=== PATIENT | male | born 1960 | race African-American/Black ===

== ENCOUNTER 2021-07-22 05:48 | Inpatient (IN) | payer OTHER ==
[~2021-07-22 05:48] MED LIST: Labetalol HCl 100 MG/20 ML VIAL ONE
[2021-07-22 06:50] LABS: Troponin I 0.599 ng/mL (< 0.028)
[2021-07-22] MEDS ORDERED: Fentanyl 100 MCG/2 ML VIAL ONE (06:53)
[2021-07-22] MEDS ORDERED: Dextrose 5% in Water 1,000 ML IV PRN (06:55)
[2021-07-22] MEDS ORDERED: Dextrose 50% Abboject 50 ML SYRINGE SLOW IVP PRN (06:55)
[2021-07-22] MEDS ORDERED: Nitroglycerin 2% Ointment 1 INCH/1 GM Packet TOP SCH (07:00)
[2021-07-22 07:08] LABS: SARS-CoV-2 NAA Rapid Test Not Detected (NotDetected)
[2021-07-22 07:14] LABS: Anion Gap 18 mmol/L (10-20); BUN (Urea Nitrogen) 33 mg/dL (8.4-25.7); Calc. Creatinine Clearance 0 mL/min (70-130); Calcium 8.9 mg/dL (7.8-10.44); Carbon Dioxide 23 mmol/L (23-31); Chloride 101 mmol/L (98-107); Glucose 209 mg/dL (80-115); Potassium 3.1 mmol/L (3.5-5.1); Sodium 139 mmol/L (136-145)
[2021-07-22 07:18] LABS: ALV-art Gradient 359.775 mmHg (0-20); Actual Bicarbonate (HCO3a) 28.1 mEq/L (22-28); Base Excess (BEa) 1.5 mEq/L (-2.0 to +3.0); CO2 Tension 52.9 mmHg (35.0-45.0); Calcium, Ionized (arterial) 1.15 mmol/L (1.12-1.30); Carboxyhemoglobin (COHb) 3.8 gm% (0.0-3.0); Hemoglobin (Hb) 12.6 g/dL (14.0-18.0); O2 Tension (PaO2), arterial 73.2 mmHg (> 80.0); Potassium - ABG Lab 3.5 mmol/L (3.70-5.30); Puncture Site LRA; pH, Arterial 7.34 (7.35-7.45)
[2021-07-22] MEDS ORDERED: fentaNYL Citrate/PF 50 MCG/ML (20ML VIAL) ONE ×3 (07:24→09:57)
[2021-07-22 07:26] LABS: Magnesium 2.2 mg/dL (1.6-2.6)
[2021-07-22 07:31] LABS: PTT 29.8 sec (22.0-33.0); Prothrombin Time 10.5 sec (9.5-12.1)
[2021-07-22] MEDS ORDERED: Propofol 1,000 MG/100 ML VIAL IV ONE (07:51)
[2021-07-22] MEDS ORDERED: Fentanyl BOLUS 250 ML IVPB PRN (08:15)
[2021-07-22] MEDS ORDERED: Morphine 2 MG/ML VIAL SLOW IVP PRN (08:15)
[2021-07-22] MEDS ORDERED: DISCONTINUE PREVIOUS NARCOTIC PAIN MEDICATIONS AND BENZODIAZEPINES FS SCH (08:15)
[2021-07-22] MEDS ORDERED: Propofol BOLUS 1,000 MG/100 ML VIAL IV PRN (08:15)
[2021-07-22] MEDS ORDERED: Lorazepam 2 MG/ML VIAL SLOW IVP PRN (08:15)
[2021-07-22] MEDS ORDERED: fentaNYL Citrate-0.9 % NaCl/PF 100 ML IVPB SCH (08:15)
[2021-07-22 08:56] LABS: Amphetamine Not Detected (NotDetected); Barbiturates Screen Not Detected (NotDetected); Benzodiazepine Screen Not Detected (NotDetected); Cocaine Metabolite Screen Detected (NotDetected); Methadone Not Detected (NotDetected); Methamphetamine Not Detected (NotDetected); Opiate Screen Not Detected (NotDetected); Oxycodone Screen Not Detected (NotDetected); Phencyclidine (PCP) Not Detected (NotDetected); THC/Cannabinoid Screen Detected (NotDetected); Tricyclic Screen Not Detected (NotDetected)
[2021-07-22] MEDS ORDERED: Furosemide 40 MG/4 ML VIAL SLOW IVP SCH ×3 (09:00→16:00)
[2021-07-22] MEDS ORDERED: Aspirin 300 MG Suppository PR SCH (09:00)
[2021-07-22 09:14] LABS: Troponin I 0.646 ng/mL (< 0.028)
[2021-07-22] MEDS ORDERED: Prevnar 13-Val Conj/PF 0.5 ML SYRINGE IM ONE (09:15)
[2021-07-22] MEDS: Pantoprazole 40 MG VIAL IVP SCH (09:31)
[2021-07-22] MEDS: HumaLOG 300 UNITS/3 ML VIAL SC PRN (09:31)
[2021-07-22] MEDS: Enoxaparin Sodium 60 MG/0.6 ML SYRINGE SC SCH ×2 (09:31→21:07)
[2021-07-22 10:35] LABS: Actual Bicarbonate (HCO3v) 28 mEq/L (22-28); Base Excess 2.1 mEq/L (-2.0 to +3.0); Calcium, Ionized (venous) 1.12 mmol/L (1.16-1.32); Chloride (VBG) 100 mmol/L (98-106); Hemoglobin (Hb) 12.6 g/dL (13.1-17.2); Potassium (VBG) 4.14 mmol/L (3.70-5.30); Puncture Site Other Site; RapidComm Collect By CBL; Sodium 136.9 mmol/L (133-146); pH (venous) 7.36 (7.32-7.43)
[2021-07-22 10:42] LABS: Lactic Acid 1.9 mmol/L (0.5-2.2)
[2021-07-22] MEDS: Lactated Ringer's 1,000 ML IV SCH (10:43)
[2021-07-22] MEDS ORDERED: Piperacillin/Tazobactam 3.375 GM in Sodium Chloride 0.9% 100 ML IVPB SCH ×2 (11:00→15:00)
[2021-07-22] MEDS ORDERED: Potassium Chloride 20 MEQ TAB PO SCH ×2 (11:00→15:00)
[2021-07-22] MEDS: Propofol 1,000 MG/100 ML VIAL IV PRN (14:46)
[2021-07-22] MEDS: Furosemide 40 MG/4 ML VIAL SLOW IVP SCH (16:53)
[2021-07-22] MEDS: Atorvastatin Calcium 40 MG TAB PO SCH (21:07)
[2021-07-22] MEDS: Piperacillin/Tazobactam 3.375 GM in Sodium Chloride 0.9% 100 ML IVPB SCH (21:08)
[2021-07-23] MEDS: Lactated Ringer's 1,000 ML IV SCH (00:04)
[2021-07-23] MEDS: Propofol 1,000 MG/100 ML VIAL IV PRN (01:40)
[2021-07-23] MEDS: Piperacillin/Tazobactam 3.375 GM in Sodium Chloride 0.9% 100 ML IVPB SCH ×3 (05:28→21:46)
[2021-07-23] MEDS: Aspirin 81 mg Enteric Coated Tablet PO SCH (07:40)
[2021-07-23] MEDS: Pantoprazole 40 MG VIAL IVP SCH (07:40)
[2021-07-23] MEDS: Furosemide 40 MG/4 ML VIAL SLOW IVP SCH (07:40)
[2021-07-23] MEDS: Enoxaparin Sodium 60 MG/0.6 ML SYRINGE SC SCH (07:41)
[2021-07-23] MEDS ORDERED: Aspirin 300 MG Suppository PR SCH (09:00)
[2021-07-23 09:10] LABS: ALV-art Gradient 122.175 mmHg (0-20); Actual Bicarbonate (HCO3a) 24.6 mEq/L (22-28); Base Excess (BEa) -1.1 mEq/L (-2.0 to +3.0); CO2 Tension 45.1 mmHg (35.0-45.0); Calcium, Ionized (arterial) 1.13 mmol/L (1.12-1.30); Carboxyhemoglobin (COHb) 0.3 gm% (0.0-3.0); Potassium - ABG Lab 4.3 mmol/L (3.70-5.30); Puncture Site RRA; pH, Arterial 7.36 (7.35-7.45)
[2021-07-23 09:17] LABS: Hemoglobin 11.5 g/dL (13.5-17.5); Mean Corpuscular HGB CONC 33.1 g/dL (32.0-36.0); Mean Corpuscular Hemoglobin 26.5 pg (27.0-33.0); Mean Platelet Volume 10.6 fl (7.4-10.4); Platelet Count 287 10x3/uL (150-450); RBC Distribution Width 15.2 % (11.5-14.5); Red Blood Cell (RBC) Count 4.34 10x6/uL (4.32-5.72)
[2021-07-23 09:35] LABS: Anion Gap 8 mmol/L (10-20); BUN (Urea Nitrogen) 48 mg/dL (8.4-25.7); Calc. Creatinine Clearance 23 mL/min (70-130); Calcium 8.6 mg/dL (7.8-10.44); Carbon Dioxide 26 mmol/L (23-31); Chloride 86 mmol/L (98-107); Glucose 100 mg/dL (80-115); Potassium 3.8 mmol/L (3.5-5.1); Sodium 116 mmol/L (136-145)
[2021-07-23] MEDS: methylPREDNISolone Sod Succ 40 MG VIAL IVP SCH ×3 (10:24→22:28)
[2021-07-23] MEDS: Sodium Chloride 0.9% 1,000 ML IV SCH ×2 (10:24→22:44)
[2021-07-23 10:30] LABS: Chloride 104 mmol/L (98-107); Potassium 4.2 mmol/L (3.5-5.1); Sodium 140 mmol/L (136-145)
[2021-07-23 10:54] LABS: Anion Gap 15 mmol/L (10-20); BUN (Urea Nitrogen) 47 mg/dL (8.4-25.7); Calc. Creatinine Clearance 23 mL/min (70-130); Calcium 8.8 mg/dL (7.8-10.44); Carbon Dioxide 25 mmol/L (23-31); Chloride 104 mmol/L (98-107); Glucose 98 mg/dL (80-115); Potassium 4.2 mmol/L (3.5-5.1); Sodium 140 mmol/L (136-145)
[2021-07-23 10:55] LABS: Carbon Dioxide 24 mmol/L (23-31)
[2021-07-23 11:22] LABS: Anion Gap 16 mmol/L (10-20)
[2021-07-23 13:17] LABS: Anion Gap 15 mmol/L (10-20); Carbon Dioxide 27 mmol/L (23-31); Chloride 104 mmol/L (98-107); Potassium 4.3 mmol/L (3.5-5.1); Sodium 142 mmol/L (136-145)
[2021-07-23] MEDS: HumaLOG 300 UNITS/3 ML VIAL SC PRN (16:59)
[2021-07-23 17:29] LABS: Potassium, Urine 30.3 mmol/L
[2021-07-23] MEDS: cloNIDine 0.1 MG TAB PO SCH (21:45)
[2021-07-23] MEDS: Atorvastatin Calcium 40 MG TAB PO SCH (21:45)
[2021-07-23] MEDS: Nitroglycerin 50 MG/250 ML BOT 250 ML IVPB SCH (22:07)
[2021-07-23] MEDS ORDERED: Lorazepam 0.5 MG TAB PO SCH (22:15)
[2021-07-23] MEDS ORDERED: hydrALAZINE 25 MG TAB PO SCH (22:30)
[2021-07-24] MEDS: HumaLOG 300 UNITS/3 ML VIAL SC PRN ×5 (00:53→20:45)
[2021-07-24 04:30] LABS: Mean Corpuscular HGB CONC 33.1 g/dL (32.0-36.0); Mean Corpuscular Hemoglobin 26.6 pg (27.0-33.0); Mean Corpuscular Volume 80.3 fl (81.2-95.1); Mean Platelet Volume 11.8 fl (7.4-10.4); Platelet Count 245 10x3/uL (150-450); RBC Distribution Width 14.4 % (11.5-14.5); Red Blood Cell (RBC) Count 3.76 10x6/uL (4.32-5.72); White Blood Cell (WBC) Count 9.6 10x3/uL (3.5-10.5)
[2021-07-24 04:48] LABS: Anion Gap 13 mmol/L (10-20); BUN (Urea Nitrogen) 55 mg/dL (8.4-25.7); Calc. Creatinine Clearance 23 mL/min (70-130); Calcium 8.3 mg/dL (7.8-10.44); Carbon Dioxide 25 mmol/L (23-31); Chloride 107 mmol/L (98-107); Glucose 158 mg/dL (80-115); Potassium 3.8 mmol/L (3.5-5.1); Sodium 141 mmol/L (136-145)
[2021-07-24] MEDS: Piperacillin/Tazobactam 3.375 GM in Sodium Chloride 0.9% 100 ML IVPB SCH (05:06)
[2021-07-24] MEDS: hydrALAZINE 25 MG TAB PO SCH ×3 (05:06→21:19)
[2021-07-24] MEDS: methylPREDNISolone Sod Succ 40 MG VIAL IVP SCH (05:06)
[2021-07-24] MEDS ORDERED: Spironolactone 25 MG TAB PO SCH (08:00)
[2021-07-24] MEDS: cloNIDine 0.1 MG TAB PO SCH ×3 (08:31→20:30)
[2021-07-24] MEDS: Aspirin 81 mg Enteric Coated Tablet PO SCH (08:31)
[2021-07-24] MEDS: Amlodipine 10 MG TAB PO SCH (08:31)
[2021-07-24] MEDS: FLUoxetine HCl 20 MG CAP PO SCH (08:31)
[2021-07-24] MEDS: Pantoprazole 40 MG VIAL IVP SCH (08:32)
[2021-07-24] MEDS ORDERED: Enoxaparin Sodium 60 MG/0.6 ML SYRINGE SC SCH (09:00)
[2021-07-24] MEDS ORDERED: Hydrochlorothiazide 25 MG TAB PO SCH (09:00)
[2021-07-24] MEDS ORDERED: Enoxaparin Sodium 40 MG/0.4 ML SYRINGE SC SCH (09:00)
[2021-07-24] MEDS: Nitroglycerin 50 MG/250 ML BOT 250 ML IVPB SCH (12:49)
[2021-07-24] MEDS: Atorvastatin Calcium 40 MG TAB PO SCH (20:31)
[2021-07-25] MEDS: HumaLOG 300 UNITS/3 ML VIAL SC PRN ×5 (00:18→20:41)
[2021-07-25] MEDS: Nitroglycerin 50 MG/250 ML BOT 250 ML IVPB SCH (00:45)
[2021-07-25] MEDS ORDERED: Lorazepam 2 MG/ML VIAL SLOW IVP SCH (04:00)
[2021-07-25] MEDS: niCARdipine 25 MG in Sodium Chloride 0.9% 250 ML 250 ML IVPB SCH ×3 (04:14→13:08)
[2021-07-25 05:05] LABS: #Monocytes 1.2 10x3/uL (0.0-1.1); #Neutrophils 10.8 10x3/uL (1.5-8.4); %Basophils 0.1 % (0.0-2.0); %Eosinophils 0.1 % (0.0-6.0); %Lymphocytes 13.7 % (18.0-47.0); %Monocytes 8.4 % (0.0-10.0); %Neutrophils 77.2 % (40.0-75.0); Mean Corpuscular Hemoglobin 26.4 pg (27.0-33.0); Mean Corpuscular Volume 79.9 fl (81.2-95.1); Mean Platelet Volume 10.7 fl (7.4-10.4); Platelet Count 288 10x3/uL (150-450); RBC Distribution Width 14.6 % (11.5-14.5); Red Blood Cell (RBC) Count 3.79 10x6/uL (4.32-5.72)
[2021-07-25 05:06] LABS: Anion Gap 11 mmol/L (10-20); BUN (Urea Nitrogen) 53 mg/dL (8.4-25.7); Calc. Creatinine Clearance 32 mL/min (70-130); Calcium 8.5 mg/dL (7.8-10.44); Carbon Dioxide 24 mmol/L (23-31); Chloride 111 mmol/L (98-107); Glucose 179 mg/dL (80-115); Potassium 3.8 mmol/L (3.5-5.1); Sodium 142 mmol/L (136-145)
[2021-07-25] MEDS: hydrALAZINE 25 MG TAB PO SCH ×2 (05:18→20:39)
[2021-07-25] MEDS: Aspirin 81 mg Enteric Coated Tablet PO SCH (08:36)
[2021-07-25] MEDS: FLUoxetine HCl 20 MG CAP PO SCH (08:36)
[2021-07-25] MEDS: Amlodipine 10 MG TAB PO SCH (08:36)
[2021-07-25] MEDS: cloNIDine 0.1 MG TAB PO SCH ×3 (08:36→20:40)
[2021-07-25] MEDS ORDERED: Enoxaparin Sodium 30 MG/0.3 ML SYRINGE SC SCH (09:00)
[2021-07-25] MEDS ORDERED: hydrALAZINE 25 MG TAB PO SCH (14:00)
[2021-07-25] MEDS: Atorvastatin Calcium 40 MG TAB PO SCH (20:40)
[2021-07-26] MEDS ORDERED: NIFEdipine XL 30 MG TAB PO SCH ×2 (00:01→12:00)
[2021-07-26 04:53] LABS: #Eosinphils 0.1 10x3/uL (0.0-0.5); #Neutrophils 6.9 10x3/uL (1.5-8.4); %Basophils 0.3 % (0.0-2.0); %Eosinophils 0.8 % (0.0-6.0); %Monocytes 9.2 % (0.0-10.0); Hemoglobin 12.7 g/dL (13.5-17.5); Mean Corpuscular HGB CONC 33.5 g/dL (32.0-36.0); Mean Corpuscular Hemoglobin 25.8 pg (27.0-33.0); Mean Corpuscular Volume 76.9 fl (81.2-95.1); Mean Platelet Volume 10.4 fl (7.4-10.4); Platelet Count 317 10x3/uL (150-450); RBC Distribution Width 14.6 % (11.5-14.5); Red Blood Cell (RBC) Count 4.93 10x6/uL (4.32-5.72); White Blood Cell (WBC) Count 10.4 10x3/uL (3.5-10.5)
[2021-07-26 05:05] LABS: Anion Gap 14 mmol/L (10-20); BUN (Urea Nitrogen) 34 mg/dL (8.4-25.7); Calc. Creatinine Clearance 44 mL/min (70-130); Calcium 8.9 mg/dL (7.8-10.44); Carbon Dioxide 22 mmol/L (23-31); Chloride 106 mmol/L (98-107); Glucose 101 mg/dL (80-115); Potassium 3.5 mmol/L (3.5-5.1); Sodium 138 mmol/L (136-145)
[2021-07-26] MEDS: hydrALAZINE 25 MG TAB PO SCH ×2 (08:04→14:58)
[2021-07-26] MEDS: cloNIDine 0.1 MG TAB PO SCH ×2 (08:05→15:01)
[2021-07-26] MEDS: Aspirin 81 mg Enteric Coated Tablet PO SCH (08:05)
[2021-07-26] MEDS: FLUoxetine HCl 20 MG CAP PO SCH (08:05)
[2021-07-26 08:15] VITALS: BMI 21.4
[2021-07-26] MEDS ORDERED: Enoxaparin Sodium 40 MG/0.4 ML SYRINGE SC SCH (09:00)
[2021-07-26] MEDS: HumaLOG 300 UNITS/3 ML VIAL SC PRN (12:21)
[2021-07-26 14:46] VITALS: TEMP 97.7
[2021-07-26 15:01] VITALS: BP 134/75
== END 2021-07-26 15:03 | disposition home or self-care (01) | DRG 208 ==
LOC: SUATTDRO 05:48 → CSHERS 05:48 → CSHIMCU 08:01
PROVIDERS: ADMIT Family Medicine; ATTEND Internal Medicine
PROC: 0BH17EZ Insertion of Endotracheal Airway into Trachea, Via Natural or Artificial Opening (ICD-10-PCS; principal; 2021-07-22)
PROC: 5A1935Z Respiratory Ventilation, Less than 24 Consecutive Hours (ICD-10-PCS; 2021-07-22)
DX: J96.01 Acute respiratory failure with hypoxia (principal); I21.A1 Myocardial infarction type 2; J69.0 Pneumonitis due to inhalation of food and vomit; J81.0 Acute pulmonary edema; I16.1 Hypertensive emergency; E87.2 Acidosis; E87.1 Hypo-osmolality and hyponatremia; N17.9 Acute kidney failure, unspecified; Z20.822 Contact with and (suspected) exposure to COVID-19; I44.7 Left bundle-branch block, unspecified; D63.1 Anemia in chronic kidney disease; N18.32 Chronic kidney disease, stage 3b; R73.9 Hyperglycemia, unspecified; F14.10 Cocaine abuse, uncomplicated; F12.90 Cannabis use, unspecified, uncomplicated; Z71.6 Tobacco abuse counseling
CPT/HCPCS: 36415; 36416; 36600; 71045; 80048; 80306; 82533; 82550; 82553; 82805; 83605; 83735; 83930; 83935; 84133; 84145; 84300; 84443; 84484; 85025; 85027; 85610; 85730; 93005; 93010; 93306; 94002; 94003; 94760; 96365; 96375; 96376; C9113; J1650; J1815; J1940; J2060; J2543; J2704; J2920; J3010; J3490; J7050; J7120; U0002